=== PATIENT | female | born 1965 | race Caucasian/White ===

== ENCOUNTER 2017-05-28 05:05 | Emergency (ER) | payer MEDICARE, OTHER | END 2017-05-28 06:20 | disposition home or self-care (01) | LOC: ER 05:05 | DX: M54.5 Low back pain (principal); G89.29 Other chronic pain; M54.40 Lumbago with sciatica, unspecified side; M51.36 Other intervertebral disc degeneration, lumbar region; Z86.19 Personal history of other infectious and parasitic diseases; F17.210 Nicotine dependence, cigarettes, uncomplicated; Z79.899 Other long term (current) drug therapy | CPT/HCPCS: 96372; 99282-25; 99283 ==